=== PATIENT | male | born 1950 | race Two or more races ===

== ENCOUNTER 2017-06-03 22:31 | Inpatient (IN) | payer BC ==
[2017-06-03] MEDS ORDERED: ONDANSETRON 4 MG INJ IV (23:30)
[2017-06-03] MEDS ORDERED: NACL 0.9% 3 ML SYG IV (23:30)
[2017-06-03] MEDS ORDERED: BISACODYL (EC) 5 MG TAB PO (23:30)
[2017-06-03] MEDS ORDERED: GLUCOSE GEL 15 GRAM TUBE BUCCAL (23:45)
[2017-06-03] MEDS ORDERED: GLUCAGON 1 MG INJ IM (23:45)
[2017-06-03] MEDS ORDERED: GLUCOSE GEL 15 GRAM TUBE PO ×2 (23:45)
[2017-06-03] MEDS ORDERED: DEXTROSE 50% 50 ML SYRINGE IV ×2 (23:45)
[2017-06-03] MEDS: CEFTRIAXONE 1 GM/50 ML (PMX) 50 ML IVPB (23:51)
[2017-06-04 00:05] LABS: ADD MAN DIFF? NO
[2017-06-04 00:07] LABS: WHITE BLOOD COUNT 12.1 10^3/ul (4.8-10.8)
[2017-06-04 00:07] LABS: BASOPHILS % 0.3 % (0.0-2.0); EOSINOPHILS # 0.1 10^3/ul (0.0-0.5); EOSINOPHILS % 0.4 % (0.0-7.0); HEMATOCRIT 30.3 % (42.0-52.0); HEMOGLOBIN 9.8 g/dl (14.0-18.0); LYMPHOCYTES # 1.8 10^3/ul (0.8-2.9); LYMPHOCYTES % 14.5 % (15.0-51.0); MEAN CORPUSCULAR HEMOGLOBIN 28.9 pg (29.0-33.0); MEAN CORPUSCULAR HGB CONC 32.3 g/dl (32.0-37.0); MEAN CORPUSCULAR VOLUME 89.4 fl (82.0-101.0); MEAN PLATELET VOLUME 9.6 fl (7.4-10.4); MONOCYTE # 0.7 10^3/ul (0.3-0.9); NEUTROPHIL # 9.3 10^3/ul (1.6-7.5); PLATELET COUNT 272 10^3/UL (140-415); RED BLOOD COUNT 3.39 10^6/ul (4.70-6.10); RED CELL DISTRIBUTION WIDTH 12.8 % (11.5-14.5)
[2017-06-04 00:17] LABS: HEMOGLOBIN A1C 6.6 % (0-5.9)
[2017-06-04 00:29] LABS: LACTIC ACID 1.2 mmol/L (0.5-2.0)
[2017-06-04 00:29] LABS: ALANINE AMINOTRANSFERASE 44 IU/L (13-69); ALBUMIN 3.3 g/dl (3.3-4.9); ALBUMIN/GLOBULIN RATIO 0.91; ALKALINE PHOSPHATASE 178 IU/L (42-121); ANION GAP 14 (8-16); ASPARTATE AMINO TRANSFERASE 37 IU/L (15-46); BILIRUBIN,INDIRECT 0.3 mg/dl (0-1.1); BILIRUBIN,TOTAL 0.3 mg/dl (0.2-1.3); BLOOD UREA NITROGEN 15 mg/dl (7-20); CALCIUM 9.1 mg/dl (8.4-10.2); CARBON DIOXIDE 27 mmol/L (21-31); CHLORIDE 102 mmol/L (97-110); CHOL/HDL RATIO 6.7 RATIO; CHOLESTEROL 95 mg/dl (100-200); CREATININE 1.06 mg/dl (0.61-1.24); GLUCOSE 121 mg/dl (70-220); HDL CHOLESTEROL 14 mg/dl (31-75); LDL CHOLESTEROL,CALCULATED 53 mg/dl; MAGNESIUM 2.1 mg/dl (1.7-2.5); POTASSIUM 4.1 mmol/L (3.5-5.1); SODIUM 139 mmol/L (135-144); TOTAL PROTEIN 6.9 g/dl (6.1-8.1); TRIGLYCERIDES 141 mg/dl (0-149)
[2017-06-04] MEDS: ACCU-CHEK XX (02:00)
[2017-06-04] MEDS: PANTOPRAZOLE (EC) 40 MG TAB PO (05:43)
[2017-06-04 07:21] LABS: ADD UMIC YES; UR ASCORBIC ACID NEGATIVE (NEGATIVE); UR BILIRUBIN (Dip) NEGATIVE (NEGATIVE); UR BLOOD (Dip) 3+ mg/dL (NEGATIVE); UR CLARITY CLEAR (CLEAR); UR COLOR YELLOW (YELLOW); UR GLUCOSE (Dip) NEGATIVE (NEGATIVE); UR KETONES (Dip) TRACE mg/dL (NEGATIVE); UR LEUKOCYTE ESTERASE (Dip) NEGATIVE Leu/ul (NEGATIVE); UR NITRITE (Dip) NEGATIVE (NEGATIVE); UR RBC > 182 /HPF (0-5); UR SPECIFIC GRAVITY (Dip) 1.011 (1.003-1.030); UR TOTAL PROTEIN (Dip) NEGATIVE (NEGATIVE); UR UROBILINOGEN (Dip) 2+ mg/dL (NEGATIVE); UR WBC 10 /HPF (0-5)
[2017-06-04 07:41] LABS: ADD MAN DIFF? NO
[2017-06-04 07:50] LABS: BASOPHIL # 0.1 10^3/ul (0.0-0.1); BASOPHILS % 0.6 % (0.0-2.0); EOSINOPHILS % 0.3 % (0.0-7.0); HEMATOCRIT 30.6 % (42.0-52.0); HEMOGLOBIN 10.1 g/dl (14.0-18.0); LYMPHOCYTES # 1.9 10^3/ul (0.8-2.9); LYMPHOCYTES % 16.3 % (15.0-51.0); MEAN CORPUSCULAR HEMOGLOBIN 29.2 pg (29.0-33.0); MEAN CORPUSCULAR VOLUME 88.4 fl (82.0-101.0); MONOCYTE # 0.7 10^3/ul (0.3-0.9); MONOCYTES % 6.2 % (0.0-11.0); NEUTROPHIL # 8.8 10^3/ul (1.6-7.5); NEUTROPHILS % 75.1 % (39.0-77.0); PLATELET COUNT 268 10^3/UL (140-415); RED BLOOD COUNT 3.46 10^6/ul (4.70-6.10)
[2017-06-04 07:50] LABS: WHITE BLOOD COUNT 11.7 10^3/ul (4.8-10.8)
[2017-06-04] MEDS: INSULIN ASPART [NOVOLOG] 3 ML PEN SC ×4 (08:00→21:00)
[2017-06-04 08:18] LABS: IRON 22 ug/dl (35-150)
[2017-06-04 08:21] LABS: ALANINE AMINOTRANSFERASE 44 IU/L (13-69); ALBUMIN 3.3 g/dl (3.3-4.9); ALBUMIN/GLOBULIN RATIO 0.91; ALKALINE PHOSPHATASE 185 IU/L (42-121); ANION GAP 19 (8-16); ASPARTATE AMINO TRANSFERASE 34 IU/L (15-46); BILIRUBIN,INDIRECT 0.3 mg/dl (0-1.1); BILIRUBIN,TOTAL 0.3 mg/dl (0.2-1.3); BLOOD UREA NITROGEN 15 mg/dl (7-20); CALCIUM 9.3 mg/dl (8.4-10.2); CARBON DIOXIDE 24 mmol/L (21-31); CHLORIDE 102 mmol/L (97-110); CREATININE 0.98 mg/dl (0.61-1.24); GLUCOSE 114 mg/dl (70-220); POTASSIUM 4.1 mmol/L (3.5-5.1); SODIUM 141 mmol/L (135-144); TOTAL PROTEIN 6.9 g/dl (6.1-8.1)
[2017-06-04 08:29] LABS: % IRON SATURATION 11 % SAT (22-52); TOTAL IRON BINDING CAPACITY 193 ug/dl (241-421)
[2017-06-04] MEDS: CLOPIDOGREL 75 MG TAB PO (09:31)
[2017-06-04] MEDS: MEROPENEM 1 GM/50ML(PMX) 50 ML IVPB ×2 (09:31→21:05)
[2017-06-04] MEDS: METOPROLOL (XL) 50 MG TAB PO (09:31)
[2017-06-04 10:24] LABS: GAMMA GLUTAMYL TRANSPEPTIDASE 154 IU/L (0-50)
[2017-06-04 10:57] LABS: CANCER ANTIGEN 125 10.6 U/ml (0.0-35.0); CARCINOEMBRYONIC ANTIGEN 1.9 ng/ml (0.0-5.0)
[2017-06-04 11:00] LABS: CANCER ANTIGEN 19-9 4.7 U/ml (0.0-37.0)
[2017-06-04 13:42] LABS: CARCINOEMBRYONIC ANTIGEN 1.9 ng/ml (0.0-5.0)
[2017-06-04 13:50] LABS: ALPHA FETOPROTEIN 1.08 IU/L (0.00-7.21)
[2017-06-04] MEDS: ATORVASTATIN 10 MG TAB PO (21:05)
[2017-06-05] MEDS: ACCU-CHEK XX (01:53)
[2017-06-05] MEDS: PANTOPRAZOLE (EC) 40 MG TAB PO (05:29)
[2017-06-05 07:16] LABS: ADD MAN DIFF? NO
[2017-06-05 07:19] LABS: WHITE BLOOD COUNT 9.8 10^3/ul (4.8-10.8)
[2017-06-05 07:19] LABS: BASOPHIL # 0.1 10^3/ul (0.0-0.1); BASOPHILS % 0.7 % (0.0-2.0); EOSINOPHILS # 0.1 10^3/ul (0.0-0.5); HEMATOCRIT 31.2 % (42.0-52.0); HEMOGLOBIN 10.1 g/dl (14.0-18.0); LYMPHOCYTES # 1.7 10^3/ul (0.8-2.9); LYMPHOCYTES % 17.4 % (15.0-51.0); MEAN CORPUSCULAR HEMOGLOBIN 28.9 pg (29.0-33.0); MEAN CORPUSCULAR HGB CONC 32.4 g/dl (32.0-37.0); MEAN CORPUSCULAR VOLUME 89.4 fl (82.0-101.0); MEAN PLATELET VOLUME 10.1 fl (7.4-10.4); MONOCYTE # 0.7 10^3/ul (0.3-0.9); MONOCYTES % 7.4 % (0.0-11.0); NEUTROPHILS % 71.3 % (39.0-77.0); PLATELET COUNT 286 10^3/UL (140-415); RED BLOOD COUNT 3.49 10^6/ul (4.70-6.10); RED CELL DISTRIBUTION WIDTH 12.9 % (11.5-14.5)
[2017-06-05 07:44] LABS: ALANINE AMINOTRANSFERASE 58 IU/L (13-69); ALBUMIN 3.2 g/dl (3.3-4.9); ALKALINE PHOSPHATASE 183 IU/L (42-121); ANION GAP 16 (8-16); ASPARTATE AMINO TRANSFERASE 56 IU/L (15-46); BILIRUBIN,INDIRECT 0.2 mg/dl (0-1.1); BILIRUBIN,TOTAL 0.2 mg/dl (0.2-1.3); BLOOD UREA NITROGEN 19 mg/dl (7-20); CARBON DIOXIDE 27 mmol/L (21-31); CHLORIDE 103 mmol/L (97-110); GLUCOSE 111 mg/dl (70-220); POTASSIUM 4.1 mmol/L (3.5-5.1); SODIUM 142 mmol/L (135-144); TOTAL PROTEIN 6.4 g/dl (6.1-8.1)
[2017-06-05] MEDS: INSULIN ASPART [NOVOLOG] 3 ML PEN SC ×4 (08:00→21:00)
[2017-06-05] MEDS: METOPROLOL (XL) 50 MG TAB PO (08:46)
[2017-06-05] MEDS: MEROPENEM 1 GM/50ML(PMX) 50 ML IVPB (09:00)
[2017-06-05] MEDS: CEFTRIAXONE 1 GM/50 ML (PMX) 50 ML IVPB (12:39)
[2017-06-05 13:02] LABS: PROTIME 14.4 Sec (11.9-14.9); PT RATIO 1.1
[2017-06-05 13:03] LABS: PARTIAL THROMBOPLASTIN TIME 37.2 Sec (25.0-35.0)
[2017-06-05 18:12] LABS: PSA, FREE 0.1 ng/mL
[2017-06-05] MEDS: ATORVASTATIN 10 MG TAB PO (21:08)
[2017-06-06] MEDS: ACCU-CHEK XX (02:00)
[2017-06-06] MEDS: PANTOPRAZOLE (EC) 40 MG TAB PO (05:41)
[2017-06-06 06:06] LABS: ADD MAN DIFF? NO
[2017-06-06 06:08] LABS: WHITE BLOOD COUNT 9.6 10^3/ul (4.8-10.8)
[2017-06-06 06:08] LABS: BASOPHILS % 0.7 % (0.0-2.0); EOSINOPHILS % 0.9 % (0.0-7.0); HEMOGLOBIN 9.8 g/dl (14.0-18.0); LYMPHOCYTES % 18.6 % (15.0-51.0); MEAN CORPUSCULAR HEMOGLOBIN 28.8 pg (29.0-33.0); MEAN CORPUSCULAR HGB CONC 32.7 g/dl (32.0-37.0); MEAN CORPUSCULAR VOLUME 88.2 fl (82.0-101.0); MEAN PLATELET VOLUME 10.1 fl (7.4-10.4); MONOCYTES % 6.1 % (0.0-11.0); NEUTROPHILS % 71.5 % (39.0-77.0); PLATELET COUNT 307 10^3/UL (140-415); RED CELL DISTRIBUTION WIDTH 12.9 % (11.5-14.5)
[2017-06-06 06:09] LABS: BASOPHIL # 0.1 10^3/ul (0.0-0.1); EOSINOPHILS # 0.1 10^3/ul (0.0-0.5); LYMPHOCYTES # 1.8 10^3/ul (0.8-2.9); MONOCYTE # 0.6 10^3/ul (0.3-0.9); NEUTROPHIL # 6.9 10^3/ul (1.6-7.5)
[2017-06-06 06:32] LABS: ALANINE AMINOTRANSFERASE 85 IU/L (13-69); ALBUMIN 3.2 g/dl (3.3-4.9); ALBUMIN/GLOBULIN RATIO 0.94; ALKALINE PHOSPHATASE 206 IU/L (42-121); ANION GAP 16 (8-16); ASPARTATE AMINO TRANSFERASE 80 IU/L (15-46); BILIRUBIN,INDIRECT 0.2 mg/dl (0-1.1); BILIRUBIN,TOTAL 0.2 mg/dl (0.2-1.3); BLOOD UREA NITROGEN 25 mg/dl (7-20); CALCIUM 9.1 mg/dl (8.4-10.2); CARBON DIOXIDE 26 mmol/L (21-31); CHLORIDE 103 mmol/L (97-110); CREATININE 1.21 mg/dl (0.61-1.24); GLUCOSE 112 mg/dl (70-220); POTASSIUM 4.7 mmol/L (3.5-5.1); SODIUM 140 mmol/L (135-144); TOTAL PROTEIN 6.6 g/dl (6.1-8.1)
[2017-06-06] MEDS: INSULIN ASPART [NOVOLOG] 3 ML PEN SC ×4 (08:00→20:36)
[2017-06-06] MEDS: METOPROLOL (XL) 50 MG TAB PO (09:42)
[2017-06-06] MEDS: INFLUENZA VIRUS VACCINE 0.5 ML (DISPENSING) IM* (09:42)
[2017-06-06] MEDS: CEFTRIAXONE 1 GM/50 ML (PMX) 50 ML IVPB (11:54)
[2017-06-06] MEDS: FOSFOMYCIN 3 GM PACKET PO (14:35)
[2017-06-06] MEDS: ATORVASTATIN 10 MG TAB PO (20:37)
[2017-06-07] MEDS: ACCU-CHEK XX (01:16)
[2017-06-07] MEDS: PANTOPRAZOLE (EC) 40 MG TAB PO (05:16)
[2017-06-07 06:12] LABS: ADD MAN DIFF? NO
[2017-06-07 06:18] LABS: BASOPHIL # 0.1 10^3/ul (0.0-0.1); BASOPHILS % 0.9 % (0.0-2.0); EOSINOPHILS # 0.1 10^3/ul (0.0-0.5); EOSINOPHILS % 0.6 % (0.0-7.0); HEMATOCRIT 30.8 % (42.0-52.0); HEMOGLOBIN 10.1 g/dl (14.0-18.0); LYMPHOCYTES % 17.3 % (15.0-51.0); MEAN CORPUSCULAR HEMOGLOBIN 29.4 pg (29.0-33.0); MEAN CORPUSCULAR HGB CONC 32.8 g/dl (32.0-37.0); MEAN CORPUSCULAR VOLUME 89.5 fl (82.0-101.0); MEAN PLATELET VOLUME 9.9 fl (7.4-10.4); MONOCYTE # 0.9 10^3/ul (0.3-0.9); MONOCYTES % 7.5 % (0.0-11.0); NEUTROPHIL # 8.1 10^3/ul (1.6-7.5); NEUTROPHILS % 71.4 % (39.0-77.0); NUCLEATED RED BLOOD CELLS # 0.1 10^3/ul (0.0-0.0); NUCLEATED RED BLOOD CELLS% 0.6 /100WBC (0.0-0.0); PLATELET COUNT 318 10^3/UL (140-415); RED BLOOD COUNT 3.44 10^6/ul (4.70-6.10)
[2017-06-07 06:18] LABS: WHITE BLOOD COUNT 11.4 10^3/ul (4.8-10.8)
[2017-06-07 07:13] LABS: ALANINE AMINOTRANSFERASE 79 IU/L (13-69); ALBUMIN 3.3 g/dl (3.3-4.9); ALBUMIN/GLOBULIN RATIO 0.97; ALKALINE PHOSPHATASE 228 IU/L (42-121); ANION GAP 16 (8-16); ASPARTATE AMINO TRANSFERASE 63 IU/L (15-46); BILIRUBIN,INDIRECT 0.3 mg/dl (0-1.1); BILIRUBIN,TOTAL 0.3 mg/dl (0.2-1.3); BLOOD UREA NITROGEN 22 mg/dl (7-20); CARBON DIOXIDE 27 mmol/L (21-31); CHLORIDE 102 mmol/L (97-110); GLUCOSE 116 mg/dl (70-220); POTASSIUM 4.9 mmol/L (3.5-5.1); SODIUM 140 mmol/L (135-144); TOTAL PROTEIN 6.7 g/dl (6.1-8.1)
[2017-06-07] MEDS: INSULIN ASPART [NOVOLOG] 3 ML PEN SC ×4 (08:00→20:35)
[2017-06-07] MEDS: METOPROLOL (XL) 50 MG TAB PO (08:11)
[2017-06-07] MEDS: SOD FERRIC GLUC COMPLX 125 MG in SOD CHLORIDE 0.9% 100 ML IVPB (12:00)
[2017-06-07] MEDS: CEFTRIAXONE 1 GM/50 ML (PMX) 50 ML IVPB (12:59)
[2017-06-07] MEDS: ATORVASTATIN 10 MG TAB PO (20:34)
[2017-06-08] MEDS: ACCU-CHEK XX (02:09)
[2017-06-08] MEDS: PANTOPRAZOLE (EC) 40 MG TAB PO (05:29)
[2017-06-08 05:56] LABS: ADD MAN DIFF? NO
[2017-06-08 06:08] LABS: WHITE BLOOD COUNT 12.3 10^3/ul (4.8-10.8)
[2017-06-08 06:08] LABS: BASOPHIL # 0.1 10^3/ul (0.0-0.1); BASOPHILS % 0.6 % (0.0-2.0); EOSINOPHILS # 0.1 10^3/ul (0.0-0.5); EOSINOPHILS % 0.6 % (0.0-7.0); HEMOGLOBIN 10.2 g/dl (14.0-18.0); LYMPHOCYTES # 1.8 10^3/ul (0.8-2.9); LYMPHOCYTES % 14.9 % (15.0-51.0); MEAN CORPUSCULAR HEMOGLOBIN 28.8 pg (29.0-33.0); MEAN CORPUSCULAR HGB CONC 32.9 g/dl (32.0-37.0); MEAN CORPUSCULAR VOLUME 87.6 fl (82.0-101.0); MEAN PLATELET VOLUME 9.9 fl (7.4-10.4); MONOCYTE # 0.9 10^3/ul (0.3-0.9); MONOCYTES % 7.1 % (0.0-11.0); NEUTROPHIL # 9.2 10^3/ul (1.6-7.5); NEUTROPHILS % 74.4 % (39.0-77.0); PLATELET COUNT 334 10^3/UL (140-415); RED BLOOD COUNT 3.54 10^6/ul (4.70-6.10); RED CELL DISTRIBUTION WIDTH 12.8 % (11.5-14.5)
[2017-06-08 06:37] LABS: ALANINE AMINOTRANSFERASE 61 IU/L (13-69); ALBUMIN 2.9 g/dl (3.3-4.9); ALKALINE PHOSPHATASE 210 IU/L (42-121); ANION GAP 17 (8-16); ASPARTATE AMINO TRANSFERASE 38 IU/L (15-46); BILIRUBIN,INDIRECT 0.3 mg/dl (0-1.1); BILIRUBIN,TOTAL 0.3 mg/dl (0.2-1.3); BLOOD UREA NITROGEN 23 mg/dl (7-20); CARBON DIOXIDE 22 mmol/L (21-31); CHLORIDE 104 mmol/L (97-110); CREATININE 1.04 mg/dl (0.61-1.24); GLUCOSE 114 mg/dl (70-220); POTASSIUM 4.4 mmol/L (3.5-5.1); SODIUM 139 mmol/L (135-144); TOTAL PROTEIN 6.1 g/dl (6.1-8.1)
[2017-06-08] MEDS: INSULIN ASPART [NOVOLOG] 3 ML PEN SC ×4 (08:00→21:00)
[2017-06-08] MEDS: METOPROLOL (XL) 50 MG TAB PO (08:53)
[2017-06-08] MEDS: DOCUSATE SODIUM 100 MG CAP PO (08:56)
[2017-06-08 11:04] LABS: PARTIAL THROMBOPLASTIN TIME 40.1 Sec (25.0-35.0)
[2017-06-08] MEDS: CEFTRIAXONE 1 GM/50 ML (PMX) 50 ML IVPB (12:08)
[2017-06-08] MEDS: ATORVASTATIN 10 MG TAB PO (20:18)
[2017-06-08] MEDS: ZOLEDRONIC ACID 4 MG in SOD CHLORIDE 0.9% 100 ML IVPB (22:44)
[2017-06-09] MEDS: ACCU-CHEK XX (02:00)
[2017-06-09] MEDS: PANTOPRAZOLE (EC) 40 MG TAB PO (05:41)
[2017-06-09 05:56] LABS: ADD MAN DIFF? NO
[2017-06-09 06:08] LABS: WHITE BLOOD COUNT 12.1 10^3/ul (4.8-10.8)
[2017-06-09 06:08] LABS: BASOPHIL # 0.1 10^3/ul (0.0-0.1); BASOPHILS % 0.7 % (0.0-2.0); EOSINOPHILS # 0.1 10^3/ul (0.0-0.5); HEMATOCRIT 30.7 % (42.0-52.0); HEMOGLOBIN 10.1 g/dl (14.0-18.0); LYMPHOCYTES # 2.1 10^3/ul (0.8-2.9); LYMPHOCYTES % 17.2 % (15.0-51.0); MEAN CORPUSCULAR HEMOGLOBIN 28.8 pg (29.0-33.0); MEAN CORPUSCULAR HGB CONC 32.9 g/dl (32.0-37.0); MEAN CORPUSCULAR VOLUME 87.5 fl (82.0-101.0); MONOCYTE # 0.8 10^3/ul (0.3-0.9); MONOCYTES % 6.7 % (0.0-11.0); NEUTROPHIL # 8.6 10^3/ul (1.6-7.5); NEUTROPHILS % 71.2 % (39.0-77.0); PLATELET COUNT 353 10^3/UL (140-415); RED BLOOD COUNT 3.51 10^6/ul (4.70-6.10); RED CELL DISTRIBUTION WIDTH 13.2 % (11.5-14.5)
[2017-06-09 06:49] LABS: ANION GAP 16 (8-16); BLOOD UREA NITROGEN 26 mg/dl (7-20); CARBON DIOXIDE 23 mmol/L (21-31); CHLORIDE 105 mmol/L (97-110); CREATININE 1.08 mg/dl (0.61-1.24); GLUCOSE 125 mg/dl (70-220); POTASSIUM 4.5 mmol/L (3.5-5.1); SODIUM 139 mmol/L (135-144)
[2017-06-09] MEDS: INSULIN ASPART [NOVOLOG] 3 ML PEN SC ×4 (08:00→21:00)
[2017-06-09] MEDS: METOPROLOL (XL) 50 MG TAB PO (08:18)
[2017-06-09] MEDS: ACETAMINOPHEN 325 MG TAB PO ×2 (09:52→21:51)
[2017-06-09] MEDS: CEFTRIAXONE 1 GM/50 ML (PMX) 50 ML IVPB (13:17)
[2017-06-09] MEDS: ATORVASTATIN 10 MG TAB PO (21:00)
[2017-06-10] MEDS: ACCU-CHEK XX (02:00)
[2017-06-10] MEDS: PANTOPRAZOLE (EC) 40 MG TAB PO (05:05)
[2017-06-10] MEDS ORDERED: LIDOCAINE 2% (SDV) 5 ML INJ (07:00)
[2017-06-10] MEDS: ACETAMINOPHEN 325 MG TAB PO ×2 (07:51→21:26)
[2017-06-10] MEDS: INSULIN ASPART [NOVOLOG] 3 ML PEN SC ×4 (07:54→21:28)
[2017-06-10] MEDS: METOPROLOL (XL) 50 MG TAB PO (09:00)
[2017-06-10] MEDS: SOD CHLORIDE 0.45% 1,000 ML IV (10:23)
[2017-06-10] MEDS ORDERED: ETOMIDATE 20 MG INJ (11:50)
[2017-06-10] MEDS ORDERED: ROCURONIUM 50 MG INJ (11:53)
[2017-06-10] MEDS ORDERED: FENTAnyl 50 MCG/ML VIAL (11:53)
[2017-06-10] MEDS: CEFTRIAXONE 1 GM/50 ML (PMX) 50 ML IVPB (12:30)
[2017-06-10] MEDS ORDERED: SUGAMMADEX SODIUM 200 MG/2 ML VIAL IV (12:50)
[2017-06-10] MEDS ORDERED: LABETALOL HCL 20MG INJ (13:15)
[2017-06-10] MEDS ORDERED: MEPERIDINE 25 MG INJ IV (13:30)
[2017-06-10] MEDS ORDERED: OXYCODONE/ACETAMINOPHEN (5/325) TAB PO ×2 (13:30)
[2017-06-10] MEDS ORDERED: FENTAnyl 50 MCG/ML VIAL IV ×3 (13:30)
[2017-06-10] MEDS ORDERED: EPHEDrine SULFATE 50 MG/5 ML SYG IV (13:30)
[2017-06-10] MEDS ORDERED: METOCLOPRAMIDE 10 MG INJ IV (13:30)
[2017-06-10] MEDS ORDERED: ONDANSETRON 4 MG INJ IV (13:30)
[2017-06-10] MEDS ORDERED: HYDROmorphONE (0.2 MG/ML) 10ML SYG IV ×2 (13:30)
[2017-06-10] MEDS ORDERED: DIPHENHYDRAMINE 50 MG INJ IV (13:30)
[2017-06-10] MEDS ORDERED: hydrALAzine 20 MG INJ IV (13:30)
[2017-06-10] MEDS ORDERED: KETOROLAC 30 MG INJ IV (13:30)
[2017-06-10] MEDS ORDERED: HYDROCODONE/APAP (5/325) TAB PO (13:30)
[2017-06-10] MEDS: HYDROmorphONE (0.2 MG/ML) 10ML SYG IV (13:37)
[2017-06-10] MEDS: LABETALOL HCL 20MG INJ IV (13:38)
[2017-06-10] MEDS: DEXTROSE 5%-0.45% NACL 1,000 ML IV (16:30)
[2017-06-10] MEDS: FINASTERIDE 5 MG TAB PO (17:36)
[2017-06-10] MEDS: ATORVASTATIN 10 MG TAB PO (21:26)
[2017-06-10] MEDS: DOCUSATE SODIUM 100 MG CAP PO (21:26)
[2017-06-11] MEDS: ACCU-CHEK XX (02:23)
[2017-06-11] MEDS: PANTOPRAZOLE (EC) 40 MG TAB PO (05:52)
[2017-06-11 05:58] LABS: ADD MAN DIFF? NO
[2017-06-11 06:23] LABS: INR 1.14; PROTIME 14.8 Sec (11.9-14.9); PT RATIO 1.2
[2017-06-11 06:41] LABS: ANION GAP 19 (8-16); BLOOD UREA NITROGEN 22 mg/dl (7-20); CARBON DIOXIDE 20 mmol/L (21-31); CHLORIDE 105 mmol/L (97-110); CREATININE 0.95 mg/dl (0.61-1.24); GLUCOSE 136 mg/dl (70-220); POTASSIUM 5.4 mmol/L (3.5-5.1); SODIUM 139 mmol/L (135-144)
[2017-06-11 08:16] LABS: PHOSPHORUS 2.7 mg/dl (2.5-4.9)
[2017-06-11 08:16] LABS: MAGNESIUM 2.6 mg/dl (1.7-2.5)
[2017-06-11] MEDS: ACETAMINOPHEN 325 MG TAB PO ×2 (08:21→20:38)
[2017-06-11] MEDS: DOCUSATE SODIUM 100 MG CAP PO ×2 (08:22→20:38)
[2017-06-11] MEDS: METOPROLOL (XL) 50 MG TAB PO (08:22)
[2017-06-11] MEDS: INSULIN ASPART [NOVOLOG] 3 ML PEN SC ×4 (08:29→20:38)
[2017-06-11] MEDS: DEXTROSE 5%-0.45% NACL 1,000 ML IV (10:21)
[2017-06-11 12:22] LABS: BASOPHIL # 0.1 10^3/ul (0.0-0.1); BASOPHILS % 0.4 % (0.0-2.0); EOSINOPHILS # 0.1 10^3/ul (0.0-0.5); EOSINOPHILS % 0.5 % (0.0-7.0); HEMATOCRIT 28.3 % (42.0-52.0); HEMOGLOBIN 9.2 g/dl (14.0-18.0); LYMPHOCYTES # 0.9 10^3/ul (0.8-2.9); LYMPHOCYTES % 7.8 % (15.0-51.0); MEAN CORPUSCULAR HEMOGLOBIN 28.7 pg (29.0-33.0); MEAN CORPUSCULAR HGB CONC 32.5 g/dl (32.0-37.0); MEAN CORPUSCULAR VOLUME 88.2 fl (82.0-101.0); MEAN PLATELET VOLUME 9.7 fl (7.4-10.4); MONOCYTE # 0.7 10^3/ul (0.3-0.9); MONOCYTES % 5.7 % (0.0-11.0); NEUTROPHIL # 9.6 10^3/ul (1.6-7.5); NEUTROPHILS % 83.8 % (39.0-77.0); PLATELET COUNT 307 10^3/UL (140-415); RED BLOOD COUNT 3.21 10^6/ul (4.70-6.10); RED CELL DISTRIBUTION WIDTH 13.4 % (11.5-14.5)
[2017-06-11 12:22] LABS: WHITE BLOOD COUNT 11.5 10^3/ul (4.8-10.8)
[2017-06-11] MEDS: CEFTRIAXONE 1 GM/50 ML (PMX) 50 ML IVPB (12:30)
[2017-06-11 12:34] LABS: PARTIAL THROMBOPLASTIN TIME 38.7 Sec (25.0-35.0)
[2017-06-11] MEDS: FUROSEMIDE 20 MG INJ IV (17:43)
[2017-06-11] MEDS: ATORVASTATIN 10 MG TAB PO (20:38)
[2017-06-12] MEDS: INSULIN ASPART [NOVOLOG] 3 ML PEN SC ×6 (01:24→21:20)
[2017-06-12] MEDS ORDERED: INSULIN ASPART [NOVOLOG] 3 ML PEN SC (05:00)
[2017-06-12] MEDS: PANTOPRAZOLE (EC) 40 MG TAB PO (05:26)
[2017-06-12 05:45] LABS: ADD MAN DIFF? NO
[2017-06-12 05:50] LABS: BASOPHIL # 0.1 10^3/ul (0.0-0.1); BASOPHILS % 0.4 % (0.0-2.0); EOSINOPHILS # 0.1 10^3/ul (0.0-0.5); EOSINOPHILS % 1.2 % (0.0-7.0); HEMATOCRIT 31.7 % (42.0-52.0); HEMOGLOBIN 10.4 g/dl (14.0-18.0); LYMPHOCYTES # 1.5 10^3/ul (0.8-2.9); MEAN CORPUSCULAR HEMOGLOBIN 28.9 pg (29.0-33.0); MEAN CORPUSCULAR HGB CONC 32.8 g/dl (32.0-37.0); MEAN CORPUSCULAR VOLUME 88.1 fl (82.0-101.0); MEAN PLATELET VOLUME 9.6 fl (7.4-10.4); MONOCYTE # 0.6 10^3/ul (0.3-0.9); MONOCYTES % 5.3 % (0.0-11.0); NEUTROPHIL # 8.7 10^3/ul (1.6-7.5); NEUTROPHILS % 77.7 % (39.0-77.0); PLATELET COUNT 349 10^3/UL (140-415); RED CELL DISTRIBUTION WIDTH 13.1 % (11.5-14.5)
[2017-06-12 05:50] LABS: WHITE BLOOD COUNT 11.2 10^3/ul (4.8-10.8)
[2017-06-12] MEDS: DEXTROSE 5%-0.45% NACL 1,000 ML IV (05:51)
[2017-06-12 06:27] LABS: ANION GAP 15 (8-16); BLOOD UREA NITROGEN 16 mg/dl (7-20); CALCIUM 6.9 mg/dl (8.4-10.2); CARBON DIOXIDE 25 mmol/L (21-31); CHLORIDE 107 mmol/L (97-110); CREATININE 0.94 mg/dl (0.61-1.24); GLUCOSE 142 mg/dl (70-220); MAGNESIUM 2.9 mg/dl (1.7-2.5); POTASSIUM 4.2 mmol/L (3.5-5.1); SODIUM 143 mmol/L (135-144)
[2017-06-12] MEDS: METOPROLOL (XL) 50 MG TAB PO (08:46)
[2017-06-12] MEDS: DOCUSATE SODIUM 100 MG CAP PO ×2 (08:46→21:20)
[2017-06-12] MEDS: CEFTRIAXONE 1 GM/50 ML (PMX) 50 ML IVPB (13:19)
[2017-06-12] MEDS: LIDOCAINE 1% (MDV) 20 ML INJ (13:46)
[2017-06-12] MEDS: PROPOFOL 20 ML (14:04)
[2017-06-12] MEDS: MIDAZOLAM 1 MG/ML 2 ML INJ (14:04)
[2017-06-12] MEDS: FENTAnyl 50 MCG/ML VIAL (14:05)
[2017-06-12] MEDS ORDERED: ONDANSETRON 4 MG INJ IV (15:30)
[2017-06-12] MEDS ORDERED: FENTAnyl 50 MCG/ML VIAL IV (15:30)
[2017-06-12] MEDS: ACETAMINOPHEN 325 MG TAB PO (17:00)
[2017-06-12] MEDS: morphine 2 MG INJ IV (21:19)
[2017-06-12] MEDS: ATORVASTATIN 10 MG TAB PO (21:20)
[2017-06-13] MEDS: DEXTROSE 5%-0.45% NACL 1,000 ML IV ×2 (01:05→05:37)
[2017-06-13] MEDS: PANTOPRAZOLE (EC) 40 MG TAB PO (05:37)
[2017-06-13] MEDS: ACETAMINOPHEN 325 MG TAB PO (06:09)
[2017-06-13 06:24] LABS: ADD MAN DIFF? NO
[2017-06-13 06:26] LABS: BASOPHIL # 0.1 10^3/ul (0.0-0.1); BASOPHILS % 0.4 % (0.0-2.0); EOSINOPHILS # 0.1 10^3/ul (0.0-0.5); EOSINOPHILS % 0.9 % (0.0-7.0); HEMATOCRIT 29.6 % (42.0-52.0); HEMOGLOBIN 9.8 g/dl (14.0-18.0); LYMPHOCYTES # 1.3 10^3/ul (0.8-2.9); LYMPHOCYTES % 11.1 % (15.0-51.0); MEAN CORPUSCULAR HEMOGLOBIN 29.3 pg (29.0-33.0); MEAN CORPUSCULAR HGB CONC 33.1 g/dl (32.0-37.0); MEAN CORPUSCULAR VOLUME 88.6 fl (82.0-101.0); MEAN PLATELET VOLUME 9.7 fl (7.4-10.4); MONOCYTE # 0.6 10^3/ul (0.3-0.9); MONOCYTES % 5.1 % (0.0-11.0); NEUTROPHIL # 9.4 10^3/ul (1.6-7.5); NEUTROPHILS % 80.4 % (39.0-77.0); PLATELET COUNT 335 10^3/UL (140-415); RED BLOOD COUNT 3.34 10^6/ul (4.70-6.10); RED CELL DISTRIBUTION WIDTH 13.2 % (11.5-14.5)
[2017-06-13 06:26] LABS: WHITE BLOOD COUNT 11.6 10^3/ul (4.8-10.8)
[2017-06-13 06:54] LABS: ANION GAP 17 (8-16); BLOOD UREA NITROGEN 15 mg/dl (7-20); CALCIUM 6.8 mg/dl (8.4-10.2); CARBON DIOXIDE 18 mmol/L (21-31); CHLORIDE 108 mmol/L (97-110); CREATININE 0.97 mg/dl (0.61-1.24); GLUCOSE 145 mg/dl (70-220); PHOSPHORUS 1.2 mg/dl (2.5-4.9); POTASSIUM 4.2 mmol/L (3.5-5.1); SODIUM 139 mmol/L (135-144)
[2017-06-13] MEDS: INSULIN ASPART [NOVOLOG] 3 ML PEN SC ×2 (08:15→12:36)
[2017-06-13] MEDS: METOPROLOL (XL) 50 MG TAB PO (08:15)
[2017-06-13] MEDS: DOCUSATE SODIUM 100 MG CAP PO (08:15)
[2017-06-13] MEDS: POTASSIUM PHOSPHATE 20 MEQ in SOD CHLORIDE 0.9% 250 ML IVPB (11:28)
[2017-06-13] MEDS: NEUTRA-PHOS 250 MG PACKET PO (12:39)
== END 2017-06-13 17:23 | disposition home or self-care (01) | DRG 666 ==
LOC: PP2 22:31
PROVIDERS: Family Medicine
PROC: 0VT08ZZ Resection of Prostate, Via Natural or Artificial Opening Endoscopic (ICD-10-PCS; principal; 2017-06-10 11:57)
PROC: 0TBB8ZX Excision of Bladder, Via Natural or Artificial Opening Endoscopic, Diagnostic (ICD-10-PCS; 2017-06-10 11:57)
PROC: 0FB13ZX Excision of Right Lobe Liver, Percutaneous Approach, Diagnostic (ICD-10-PCS; 2017-06-10 11:57)
DX: C67.1 Malignant neoplasm of dome of bladder (principal); C78.7 Secondary malignant neoplasm of liver and intrahepatic bile duct; C79.51 Secondary malignant neoplasm of bone; R65.10 Systemic inflammatory response syndrome (SIRS) of non-infectious origin without acute organ dysfunction; C61 Malignant neoplasm of prostate; I48.91 Unspecified atrial fibrillation; N39.0 Urinary tract infection, site not specified; C67.0 Malignant neoplasm of trigone of bladder; I10 Essential (primary) hypertension; E11.9 Type 2 diabetes mellitus without complications; D50.9 Iron deficiency anemia, unspecified; R59.0 Localized enlarged lymph nodes; K21.9 Gastro-esophageal reflux disease without esophagitis; Z95.5 Presence of coronary angioplasty implant and graft; Z79.02 Long term (current) use of antithrombotics/antiplatelets; R31.0 Gross hematuria; Z87.891 Personal history of nicotine dependence
CPT/HCPCS: 71250; 74176; 76705; 76775; 77012; 80048; 80053; 80061; 81001; 82105; 82378; 82728; 82962; 82977; 83036; 83540; 83605; 83735; 84100; 84153; 84154; 84443; 85025; 85335; 85384; 85610; 85730; 86301; 86304; 87040; 87081; 87086; 88104; 88307; 88309; 88312; 88313; 88341; 88342; 93005; J1940; J3487

== ENCOUNTER 2017-06-20 13:58 | Inpatient (IN) | payer BC ==
[2017-06-20 16:43] LABS: ADD MAN DIFF? NO
[2017-06-20 16:45] LABS: BASOPHIL # 0.1 10^3/ul (0.0-0.1); BASOPHILS % 0.6 % (0.0-2.0); EOSINOPHILS % 0.2 % (0.0-7.0); HEMATOCRIT 32.3 % (42.0-52.0); HEMOGLOBIN 10.4 g/dl (14.0-18.0); LYMPHOCYTES # 1.2 10^3/ul (0.8-2.9); LYMPHOCYTES % 9.7 % (15.0-51.0); MEAN CORPUSCULAR HEMOGLOBIN 28.1 pg (29.0-33.0); MEAN CORPUSCULAR HGB CONC 32.2 g/dl (32.0-37.0); MEAN CORPUSCULAR VOLUME 87.3 fl (82.0-101.0); MEAN PLATELET VOLUME 9.4 fl (7.4-10.4); MONOCYTE # 0.7 10^3/ul (0.3-0.9); MONOCYTES % 5.4 % (0.0-11.0); NEUTROPHIL # 10.1 10^3/ul (1.6-7.5); NEUTROPHILS % 79.3 % (39.0-77.0); PLATELET COUNT 306 10^3/UL (140-415); RED CELL DISTRIBUTION WIDTH 14.2 % (11.5-14.5)
[2017-06-20 16:45] LABS: WHITE BLOOD COUNT 12.7 10^3/ul (4.8-10.8)
[2017-06-20] MEDS: CEFEPIME 2GM/50 ML (PMX) 50 ML IVPB (16:46)
[2017-06-20] MEDS: SODIUM CHLORIDE 0.9% 1L BAG IV* (16:47)
[2017-06-20 17:02] LABS: ALANINE AMINOTRANSFERASE 76 IU/L (13-69); ALBUMIN 3.6 g/dl (3.3-4.9); ALBUMIN/GLOBULIN RATIO 0.87; ALKALINE PHOSPHATASE 340 IU/L (42-121); ANION GAP 17 (8-16); ASPARTATE AMINO TRANSFERASE 61 IU/L (15-46); BILIRUBIN,INDIRECT 0.3 mg/dl (0-1.1); BILIRUBIN,TOTAL 0.3 mg/dl (0.2-1.3); BLOOD UREA NITROGEN 18 mg/dl (7-20); CALCIUM 7.8 mg/dl (8.4-10.2); CARBON DIOXIDE 18 mmol/L (21-31); CHLORIDE 106 mmol/L (97-110); CREATININE 1.26 mg/dl (0.61-1.24); GLUCOSE 194 mg/dl (70-220); POTASSIUM 4.7 mmol/L (3.5-5.1); SODIUM 136 mmol/L (135-144); TOTAL PROTEIN 7.7 g/dl (6.1-8.1)
[2017-06-20 17:13] LABS: TROPONIN-I < 0.012 ng/ml (0.00-0.12)
[2017-06-20 17:16] LABS: LACTIC ACID 3.5 mmol/L (0.5-2.0)
[2017-06-20 17:16] LABS: PROTIME 14.4 Sec (11.9-14.9); PT RATIO 1.1
[2017-06-20 17:17] LABS: PARTIAL THROMBOPLASTIN TIME 34.5 Sec (25.0-35.0)
[2017-06-20] MEDS ORDERED: ONDANSETRON 4 MG INJ IV (18:00)
[2017-06-20] MEDS ORDERED: GLUCOSE GEL 15 GRAM TUBE BUCCAL (19:00)
[2017-06-20] MEDS ORDERED: DEXTROSE 50% 50 ML SYRINGE IV ×2 (19:00)
[2017-06-20] MEDS ORDERED: GLUCOSE GEL 15 GRAM TUBE PO ×2 (19:00)
[2017-06-20] MEDS ORDERED: GLUCAGON 1 MG INJ IM (19:00)
[2017-06-20 19:47] LABS: LACTIC ACID 2.8 mmol/L (0.5-2.0)
[2017-06-20] MEDS: INSULIN ASPART [NOVOLOG] 3 ML PEN SC (21:00)
[2017-06-20] MEDS: INSULIN GLARGINE [LANtus] 3 ML PEN SC (21:02)
[2017-06-20] MEDS: MEROPENEM 1 GM/50ML(PMX) 50 ML IVPB (21:37)
[2017-06-20 23:06] LABS: ADD UMIC YES; UR ASCORBIC ACID NEGATIVE (NEGATIVE); UR BILIRUBIN (Dip) NEGATIVE (NEGATIVE); UR BLOOD (Dip) 3+ mg/dL (NEGATIVE); UR CLARITY CLOUDY (CLEAR); UR COLOR YELLOW (YELLOW); UR GLUCOSE (Dip) NEGATIVE (NEGATIVE); UR KETONES (Dip) NEGATIVE (NEGATIVE); UR LEUKOCYTE ESTERASE (Dip) 2+ Leu/ul (NEGATIVE); UR NITRITE (Dip) NEGATIVE (NEGATIVE); UR RBC > 182 /HPF (0-5); UR SPECIFIC GRAVITY (Dip) 1.013 (1.003-1.030); UR TOTAL PROTEIN (Dip) 1+ mg/dl (NEGATIVE); UR UROBILINOGEN (Dip) NEGATIVE (NEGATIVE); UR WBC 164 /HPF (0-5)
[2017-06-20 23:17] LABS: LACTIC ACID 2.4 mmol/L (0.5-2.0)
[2017-06-21] MEDS: ACCU-CHEK XX (01:58)
[2017-06-21] MEDS: ACETAMINOPHEN 325 MG TAB PO ×2 (02:09→20:31)
[2017-06-21 05:55] LABS: ADD MAN DIFF? NO
[2017-06-21 05:58] LABS: WHITE BLOOD COUNT 11.5 10^3/ul (4.8-10.8)
[2017-06-21 05:58] LABS: BASOPHIL # 0.1 10^3/ul (0.0-0.1); BASOPHILS % 0.5 % (0.0-2.0); EOSINOPHILS # 0.1 10^3/ul (0.0-0.5); EOSINOPHILS % 0.7 % (0.0-7.0); HEMATOCRIT 27.9 % (42.0-52.0); HEMOGLOBIN 9.1 g/dl (14.0-18.0); LYMPHOCYTES # 1.4 10^3/ul (0.8-2.9); LYMPHOCYTES % 11.9 % (15.0-51.0); MEAN CORPUSCULAR HEMOGLOBIN 28.3 pg (29.0-33.0); MEAN CORPUSCULAR HGB CONC 32.6 g/dl (32.0-37.0); MEAN CORPUSCULAR VOLUME 86.6 fl (82.0-101.0); MEAN PLATELET VOLUME 9.6 fl (7.4-10.4); MONOCYTE # 0.7 10^3/ul (0.3-0.9); MONOCYTES % 6.4 % (0.0-11.0); NEUTROPHIL # 8.9 10^3/ul (1.6-7.5); NEUTROPHILS % 77.8 % (39.0-77.0); PLATELET COUNT 249 10^3/UL (140-415); RED BLOOD COUNT 3.22 10^6/ul (4.70-6.10); RED CELL DISTRIBUTION WIDTH 14.3 % (11.5-14.5)
[2017-06-21 06:19] LABS: ALANINE AMINOTRANSFERASE 64 IU/L (13-69); ALBUMIN 3.2 g/dl (3.3-4.9); ALBUMIN/GLOBULIN RATIO 0.91; ALKALINE PHOSPHATASE 297 IU/L (42-121); ANION GAP 17 (8-16); ASPARTATE AMINO TRANSFERASE 62 IU/L (15-46); BILIRUBIN,INDIRECT 0.2 mg/dl (0-1.1); BILIRUBIN,TOTAL 0.2 mg/dl (0.2-1.3); BLOOD UREA NITROGEN 20 mg/dl (7-20); CALCIUM 7.6 mg/dl (8.4-10.2); CARBON DIOXIDE 19 mmol/L (21-31); CHLORIDE 111 mmol/L (97-110); CREATININE 0.94 mg/dl (0.61-1.24); GLUCOSE 122 mg/dl (70-220); POTASSIUM 4.7 mmol/L (3.5-5.1); SODIUM 142 mmol/L (135-144); TOTAL PROTEIN 6.7 g/dl (6.1-8.1)
[2017-06-21] MEDS: INSULIN ASPART [NOVOLOG] 3 ML PEN SC ×7 (08:03→21:00)
[2017-06-21] MEDS: MEROPENEM 1 GM/50ML(PMX) 50 ML IVPB ×2 (09:49→20:26)
[2017-06-21] MEDS: morphine 2 MG INJ IV (20:29)
[2017-06-21] MEDS: INSULIN GLARGINE [LANtus] 3 ML PEN SC (20:38)
[2017-06-22] MEDS: ACCU-CHEK XX (02:00)
[2017-06-22 05:37] LABS: ADD MAN DIFF? NO
[2017-06-22 05:53] LABS: BASOPHIL # 0.1 10^3/ul (0.0-0.1); BASOPHILS % 0.7 % (0.0-2.0); EOSINOPHILS # 0.1 10^3/ul (0.0-0.5); EOSINOPHILS % 0.6 % (0.0-7.0); HEMATOCRIT 32.3 % (42.0-52.0); HEMOGLOBIN 10.4 g/dl (14.0-18.0); LYMPHOCYTES % 17.1 % (15.0-51.0); MEAN CORPUSCULAR HEMOGLOBIN 28.1 pg (29.0-33.0); MEAN CORPUSCULAR HGB CONC 32.2 g/dl (32.0-37.0); MEAN CORPUSCULAR VOLUME 87.3 fl (82.0-101.0); MEAN PLATELET VOLUME 9.7 fl (7.4-10.4); MONOCYTE # 0.6 10^3/ul (0.3-0.9); MONOCYTES % 5.2 % (0.0-11.0); NEUTROPHIL # 8.5 10^3/ul (1.6-7.5); NEUTROPHILS % 72.1 % (39.0-77.0); NUCLEATED RED BLOOD CELLS% 0.2 /100WBC (0.0-0.0); PLATELET COUNT 275 10^3/UL (140-415); RED CELL DISTRIBUTION WIDTH 14.3 % (11.5-14.5)
[2017-06-22 05:53] LABS: WHITE BLOOD COUNT 11.8 10^3/ul (4.8-10.8)
[2017-06-22 06:13] LABS: ANION GAP 18 (8-16); BLOOD UREA NITROGEN 18 mg/dl (7-20); CALCIUM 7.8 mg/dl (8.4-10.2); CARBON DIOXIDE 20 mmol/L (21-31); CHLORIDE 108 mmol/L (97-110); CREATININE 0.92 mg/dl (0.61-1.24); GLUCOSE 118 mg/dl (70-220); POTASSIUM 4.6 mmol/L (3.5-5.1); SODIUM 141 mmol/L (135-144)
[2017-06-22] MEDS: MEROPENEM 1 GM/50ML(PMX) 50 ML IVPB (07:55)
[2017-06-22] MEDS: INSULIN ASPART [NOVOLOG] 3 ML PEN SC ×7 (07:55→20:44)
[2017-06-22] MEDS: ACETAMINOPHEN 325 MG TAB PO (12:05)
[2017-06-22] MEDS: INSULIN GLARGINE [LANtus] 3 ML PEN SC (20:49)
[2017-06-22] MEDS: ATORVASTATIN 10 MG TAB PO (21:25)
[2017-06-22] MEDS: PIPER-TAZO 3.375 GM IV (PMX) 100 ML IVPB (21:25)
[2017-06-22] MEDS: SOD CHLORIDE 0.9% 1,000 ML IV (23:33)
[2017-06-23] MEDS: morphine 2 MG INJ IV
[2017-06-23] MEDS: LORAZEPAM 2 MG INJ IV
[2017-06-23] MEDS: DILTIAZEM 25 MG INJ IV (00:44)
[2017-06-23] MEDS: ACCU-CHEK XX (02:00)
[2017-06-23] MEDS: PANTOPRAZOLE (EC) 40 MG TAB PO (06:03)
[2017-06-23] MEDS: PIPER-TAZO 3.375 GM IV (PMX) 100 ML IVPB ×3 (06:03→21:18)
[2017-06-23] MEDS: AMIODARONE 900 MG in DEXTROSE 5% 482 ML IV (06:47)
[2017-06-23 07:53] LABS: ADD MAN DIFF? NO
[2017-06-23] MEDS: INSULIN ASPART [NOVOLOG] 3 ML PEN SC ×7 (07:55→22:09)
[2017-06-23 07:56] LABS: WHITE BLOOD COUNT 10.2 10^3/ul (4.8-10.8)
[2017-06-23 07:56] LABS: BASOPHIL # 0.1 10^3/ul (0.0-0.1); BASOPHILS % 0.7 % (0.0-2.0); EOSINOPHILS # 0.1 10^3/ul (0.0-0.5); EOSINOPHILS % 0.5 % (0.0-7.0); HEMATOCRIT 31.8 % (42.0-52.0); HEMOGLOBIN 10.2 g/dl (14.0-18.0); LYMPHOCYTES # 1.5 10^3/ul (0.8-2.9); LYMPHOCYTES % 14.7 % (15.0-51.0); MEAN CORPUSCULAR HEMOGLOBIN 27.9 pg (29.0-33.0); MEAN CORPUSCULAR HGB CONC 32.1 g/dl (32.0-37.0); MEAN CORPUSCULAR VOLUME 87.1 fl (82.0-101.0); MEAN PLATELET VOLUME 9.7 fl (7.4-10.4); MONOCYTE # 0.6 10^3/ul (0.3-0.9); MONOCYTES % 5.4 % (0.0-11.0); NEUTROPHIL # 7.6 10^3/ul (1.6-7.5); NEUTROPHILS % 74.4 % (39.0-77.0); PLATELET COUNT 292 10^3/UL (140-415); RED BLOOD COUNT 3.65 10^6/ul (4.70-6.10); RED CELL DISTRIBUTION WIDTH 14.5 % (11.5-14.5)
[2017-06-23 08:20] LABS: LACTIC ACID 2.3 mmol/L (0.5-2.0)
[2017-06-23 08:26] LABS: ANION GAP 18 (8-16); BLOOD UREA NITROGEN 19 mg/dl (7-20); CALCIUM 7.7 mg/dl (8.4-10.2); CARBON DIOXIDE 19 mmol/L (21-31); CHLORIDE 107 mmol/L (97-110); CREATININE 0.97 mg/dl (0.61-1.24); GLUCOSE 98 mg/dl (70-220); MAGNESIUM 2.2 mg/dl (1.7-2.5); POTASSIUM 4.7 mmol/L (3.5-5.1); SODIUM 139 mmol/L (135-144)
[2017-06-23] MEDS: METOPROLOL (XL) 25 MG TAB PO (09:22)
[2017-06-23] MEDS: ATORVASTATIN 10 MG TAB PO (21:17)
[2017-06-23] MEDS: INSULIN GLARGINE [LANtus] 3 ML PEN SC (22:09)
[2017-06-24] MEDS: ACCU-CHEK XX (02:00)
[2017-06-24 05:13] LABS: ADD MAN DIFF? NO
[2017-06-24 05:16] LABS: BASOPHIL # 0.1 10^3/ul (0.0-0.1); BASOPHILS % 0.7 % (0.0-2.0); EOSINOPHILS # 0.1 10^3/ul (0.0-0.5); HEMATOCRIT 31.5 % (42.0-52.0); LYMPHOCYTES # 1.9 10^3/ul (0.8-2.9); LYMPHOCYTES % 18.5 % (15.0-51.0); MEAN CORPUSCULAR HEMOGLOBIN 28.1 pg (29.0-33.0); MEAN CORPUSCULAR HGB CONC 31.7 g/dl (32.0-37.0); MEAN CORPUSCULAR VOLUME 88.5 fl (82.0-101.0); MEAN PLATELET VOLUME 9.7 fl (7.4-10.4); MONOCYTE # 0.6 10^3/ul (0.3-0.9); NEUTROPHILS % 69.4 % (39.0-77.0); NUCLEATED RED BLOOD CELLS% 0.2 /100WBC (0.0-0.0); PLATELET COUNT 250 10^3/UL (140-415); RED BLOOD COUNT 3.56 10^6/ul (4.70-6.10); RED CELL DISTRIBUTION WIDTH 14.6 % (11.5-14.5)
[2017-06-24 05:16] LABS: WHITE BLOOD COUNT 10.1 10^3/ul (4.8-10.8)
[2017-06-24] MEDS: PIPER-TAZO 3.375 GM IV (PMX) 100 ML IVPB ×3 (05:48→21:13)
[2017-06-24] MEDS: PANTOPRAZOLE (EC) 40 MG TAB PO (05:49)
[2017-06-24 05:54] LABS: ANION GAP 18 (8-16); BLOOD UREA NITROGEN 20 mg/dl (7-20); CARBON DIOXIDE 18 mmol/L (21-31); CHLORIDE 108 mmol/L (97-110); CREATININE 0.97 mg/dl (0.61-1.24); GLUCOSE 116 mg/dl (70-220); POTASSIUM 4.6 mmol/L (3.5-5.1); SODIUM 139 mmol/L (135-144)
[2017-06-24] MEDS: INSULIN ASPART [NOVOLOG] 3 ML PEN SC ×7 (07:50→21:00)
[2017-06-24] MEDS: METOPROLOL (XL) 25 MG TAB PO (09:07)
[2017-06-24] MEDS: ATORVASTATIN 10 MG TAB PO (21:04)
[2017-06-24] MEDS: INSULIN GLARGINE [LANtus] 3 ML PEN SC (21:13)
[2017-06-25] MEDS: ACCU-CHEK XX (02:00)
[2017-06-25] MEDS: ACETAMINOPHEN 325 MG TAB PO (02:39)
[2017-06-25] MEDS: PANTOPRAZOLE (EC) 40 MG TAB PO (05:36)
[2017-06-25] MEDS: PIPER-TAZO 3.375 GM IV (PMX) 100 ML IVPB ×3 (05:36→21:40)
[2017-06-25 05:38] LABS: ADD MAN DIFF? NO
[2017-06-25 05:46] LABS: BASOPHIL # 0.1 10^3/ul (0.0-0.1); BASOPHILS % 0.5 % (0.0-2.0); EOSINOPHILS # 0.1 10^3/ul (0.0-0.5); EOSINOPHILS % 0.9 % (0.0-7.0); HEMATOCRIT 29.1 % (42.0-52.0); HEMOGLOBIN 9.3 g/dl (14.0-18.0); LYMPHOCYTES # 1.7 10^3/ul (0.8-2.9); LYMPHOCYTES % 15.4 % (15.0-51.0); MEAN CORPUSCULAR HEMOGLOBIN 27.4 pg (29.0-33.0); MEAN CORPUSCULAR VOLUME 85.8 fl (82.0-101.0); MONOCYTE # 0.7 10^3/ul (0.3-0.9); MONOCYTES % 5.9 % (0.0-11.0); NEUTROPHIL # 8.1 10^3/ul (1.6-7.5); NEUTROPHILS % 72.7 % (39.0-77.0); NUCLEATED RED BLOOD CELLS% 0.2 /100WBC (0.0-0.0); PLATELET COUNT 249 10^3/UL (140-415); RED BLOOD COUNT 3.39 10^6/ul (4.70-6.10); RED CELL DISTRIBUTION WIDTH 14.7 % (11.5-14.5)
[2017-06-25 05:46] LABS: WHITE BLOOD COUNT 11.1 10^3/ul (4.8-10.8)
[2017-06-25 06:07] LABS: ANION GAP 17 (8-16); BLOOD UREA NITROGEN 18 mg/dl (7-20); CALCIUM 8.1 mg/dl (8.4-10.2); CARBON DIOXIDE 18 mmol/L (21-31); CHLORIDE 109 mmol/L (97-110); CREATININE 0.99 mg/dl (0.61-1.24); GLUCOSE 148 mg/dl (70-220); POTASSIUM 4.2 mmol/L (3.5-5.1); SODIUM 140 mmol/L (135-144)
[2017-06-25] MEDS: INSULIN ASPART [NOVOLOG] 3 ML PEN SC ×7 (07:50→21:46)
[2017-06-25] MEDS: METOPROLOL (XL) 25 MG TAB PO (08:52)
[2017-06-25] MEDS ORDERED: SOD CHLORIDE 0.9% 250 ML (13:59)
[2017-06-25] MEDS: MIDAZOLAM 1 MG/ML 2 ML INJ (14:27)
[2017-06-25] MEDS: CEFAZOLIN 1 GM/50 ML (PMX) 100 ML IVPB (14:27)
[2017-06-25] MEDS: LIDOCAINE 1%/EPI 30 ML INJ (14:30)
[2017-06-25] MEDS: LABETALOL HCL 20MG INJ (14:51)
[2017-06-25] MEDS: ESMOLOL 10 ML ×2 (14:52→15:02)
[2017-06-25] MEDS: FENTAnyl 50 MCG/ML VIAL ×2 (15:00→15:10)
[2017-06-25] MEDS: DILTIAZEM 25 MG INJ IV (15:00)
[2017-06-25] MEDS: POLYMYXIN/BACITRACIN 1L IRRIG IRR (15:00)
[2017-06-25] MEDS: PHENYLephrine 10% 5 ML OPH (15:02)
[2017-06-25] MEDS ORDERED: PHENYLephrine (100 MCG/ML) 5ML SYG (15:03)
[2017-06-25] MEDS: HEPARIN 1000 UNITS/ML 10 ML INJ (15:09)
[2017-06-25] MEDS: CEFAZOLIN 1 GM/50 ML (PMX) 0 ML IVPB (15:10)
[2017-06-25] MEDS: PROPOFOL 20 ML (15:10)
[2017-06-25] MEDS: ATORVASTATIN 10 MG TAB PO (21:40)
[2017-06-25] MEDS: INSULIN GLARGINE [LANtus] 3 ML PEN SC (21:45)
[2017-06-26] MEDS: ACCU-CHEK XX (02:00)
[2017-06-26] MEDS: ACETAMINOPHEN 325 MG TAB PO ×2 (04:23→21:43)
[2017-06-26] MEDS: PANTOPRAZOLE (EC) 40 MG TAB PO (06:09)
[2017-06-26] MEDS: PIPER-TAZO 3.375 GM IV (PMX) 100 ML IVPB ×3 (06:09→21:39)
[2017-06-26] MEDS: INSULIN ASPART [NOVOLOG] 3 ML PEN SC ×7 (08:00→21:00)
[2017-06-26] MEDS: METOPROLOL (XL) 25 MG TAB PO (08:52)
[2017-06-26] MEDS: DILTIAZEM 25 MG INJ IV (10:12)
[2017-06-26] MEDS: DILTIAZEM-D5W 125MG/125ML DRIP 125 ML IV (10:24)
[2017-06-26] MEDS: MAGNESIUM SULFATE 2 GM/50 ML 50 ML IVPB (12:02)
[2017-06-26] MEDS: DILTIAZEM 60 MG TAB PO ×2 (14:17→18:09)
[2017-06-26] MEDS: AMIODARONE 200 MG TAB PO (17:19)
[2017-06-26] MEDS ORDERED: METOPROLOL 5 MG INJ IV (19:00)
[2017-06-26] MEDS: ATORVASTATIN 10 MG TAB PO (21:39)
[2017-06-26] MEDS: INSULIN GLARGINE [LANtus] 3 ML PEN SC (22:14)
[2017-06-27] MEDS: DILTIAZEM 60 MG TAB PO ×4 (01:07→18:16)
[2017-06-27] MEDS: ACCU-CHEK XX (01:08)
[2017-06-27] MEDS: AMIODARONE 200 MG TAB PO ×3 (01:08→21:02)
[2017-06-27 01:43] LABS: TROPONIN-I < 0.012 ng/ml (0.00-0.12)
[2017-06-27] MEDS: PIPER-TAZO 3.375 GM IV (PMX) 100 ML IVPB ×3 (05:22→21:35)
[2017-06-27] MEDS: PANTOPRAZOLE (EC) 40 MG TAB PO (05:22)
[2017-06-27 05:38] LABS: ABNORMAL IP MESSAGE 1; ADD MAN DIFF? NO; BASOPHIL # 0.1 10^3/ul (0.0-0.1); BASOPHILS % 0.5 % (0.0-2.0); EOSINOPHILS # 0.1 10^3/ul (0.0-0.5); EOSINOPHILS % 0.9 % (0.0-7.0); HEMATOCRIT 29.9 % (42.0-52.0); HEMOGLOBIN 9.5 g/dl (14.0-18.0); LYMPHOCYTES # 1.6 10^3/ul (0.8-2.9); LYMPHOCYTES % 14.8 % (15.0-51.0); MEAN CORPUSCULAR HEMOGLOBIN 27.9 pg (29.0-33.0); MEAN CORPUSCULAR HGB CONC 31.8 g/dl (32.0-37.0); MEAN CORPUSCULAR VOLUME 87.7 fl (82.0-101.0); MONOCYTE # 0.5 10^3/ul (0.3-0.9); MONOCYTES % 4.7 % (0.0-11.0); NEUTROPHILS % 73.4 % (39.0-77.0); PLATELET COUNT 269 10^3/UL (140-415); POSITIVE DIFF @See below; RED BLOOD COUNT 3.41 10^6/ul (4.70-6.10); RED CELL DISTRIBUTION WIDTH 14.9 % (11.5-14.5)
[2017-06-27 06:16] LABS: ANION GAP 16 (8-16); BLOOD UREA NITROGEN 19 mg/dl (7-20); CALCIUM 8.3 mg/dl (8.4-10.2); CARBON DIOXIDE 22 mmol/L (21-31); CHLORIDE 108 mmol/L (97-110); CREATININE 1.15 mg/dl (0.61-1.24); GLUCOSE 144 mg/dl (70-220); MAGNESIUM 2.6 mg/dl (1.7-2.5); PHOSPHORUS 2.6 mg/dl (2.5-4.9); POTASSIUM 4.9 mmol/L (3.5-5.1); SODIUM 141 mmol/L (135-144)
[2017-06-27 06:22] LABS: CHOLESTEROL 122 mg/dl (100-200); TROPONIN-I < 0.012 ng/ml (0.00-0.12)
[2017-06-27 06:22] LABS: CHOL/HDL RATIO 5.8 RATIO; HDL CHOLESTEROL 21 mg/dl (31-75); LDL CHOLESTEROL,CALCULATED 68 mg/dl; TRIGLYCERIDES 166 mg/dl (0-149)
[2017-06-27] MEDS: INSULIN ASPART [NOVOLOG] 3 ML PEN SC ×7 (07:50→21:00)
[2017-06-27] MEDS: ASPIRIN 81 MG TAB PO (09:45)
[2017-06-27] MEDS: METOPROLOL (XL) 25 MG TAB PO (09:48)
[2017-06-27] MEDS ORDERED: SOD CHLORIDE 0.9% IV (16:30)
[2017-06-27] MEDS ORDERED: GEMCITABINE IV (16:30)
[2017-06-27] MEDS: ATORVASTATIN 10 MG TAB PO (21:01)
[2017-06-27] MEDS: INSULIN GLARGINE [LANtus] 3 ML PEN SC (21:05)
[2017-06-27] MEDS: morphine LIQ (10 MG/5 ML) CUP PO (21:20)
[2017-06-27] MEDS: NACL 0.9% IV (21:42)
[2017-06-27] MEDS: KCL 20 MEQ IV (21:42)
[2017-06-27] MEDS ORDERED: DIPHENHYDRAMINE 50 MG INJ IV (22:30)
[2017-06-27] MEDS ORDERED: HYDROCORTISONE 100 MG INJ IV (22:30)
[2017-06-28] MEDS: FUROSEMIDE 40 MG INJ IV ×2 (00:01→13:27)
[2017-06-28] MEDS: DILTIAZEM 60 MG TAB PO ×4 (00:39→18:18)
[2017-06-28] MEDS: ONDANSETRON INJ 16 MG, DEXAMETHASONE 4 MG/ML 20 MG in DEXTROSE 5% 50 ML IV (00:48)
[2017-06-28] MEDS: SOD CHLORIDE 0.9% IV ×2 (01:55→12:58)
[2017-06-28] MEDS: CISPLATIN IV (01:55)
[2017-06-28] MEDS: ACCU-CHEK XX (02:00)
[2017-06-28 05:25] LABS: ADD MAN DIFF? NO
[2017-06-28 05:30] LABS: ABNORMAL IP MESSAGE 1; BASOPHILS % 0.4 % (0.0-2.0); EOSINOPHILS # 0.1 10^3/ul (0.0-0.5); EOSINOPHILS % 0.8 % (0.0-7.0); HEMATOCRIT 27.1 % (42.0-52.0); HEMOGLOBIN 8.7 g/dl (14.0-18.0); LYMPHOCYTES # 1.1 10^3/ul (0.8-2.9); LYMPHOCYTES % 10.5 % (15.0-51.0); MEAN CORPUSCULAR HEMOGLOBIN 27.7 pg (29.0-33.0); MEAN CORPUSCULAR HGB CONC 32.1 g/dl (32.0-37.0); MEAN CORPUSCULAR VOLUME 86.3 fl (82.0-101.0); MEAN PLATELET VOLUME 9.6 fl (7.4-10.4); MONOCYTE # 0.3 10^3/ul (0.3-0.9); MONOCYTES % 2.7 % (0.0-11.0); NEUTROPHIL # 8.1 10^3/ul (1.6-7.5); NEUTROPHILS % 78.8 % (39.0-77.0); PLATELET COUNT 237 10^3/UL (140-415); POSITIVE DIFF @See below; RED BLOOD COUNT 3.14 10^6/ul (4.70-6.10); RED CELL DISTRIBUTION WIDTH 15.1 % (11.5-14.5)
[2017-06-28 05:30] LABS: WHITE BLOOD COUNT 10.2 10^3/ul (4.8-10.8)
[2017-06-28 06:00] LABS: ANION GAP 15 (8-16); BLOOD UREA NITROGEN 18 mg/dl (7-20); CARBON DIOXIDE 19 mmol/L (21-31); CHLORIDE 112 mmol/L (97-110); CREATININE 1.06 mg/dl (0.61-1.24); GLUCOSE 166 mg/dl (70-220); MAGNESIUM 2.4 mg/dl (1.7-2.5); PHOSPHORUS 1.9 mg/dl (2.5-4.9); POTASSIUM 4.9 mmol/L (3.5-5.1); SODIUM 141 mmol/L (135-144)
[2017-06-28] MEDS: PIPER-TAZO 3.375 GM IV (PMX) 100 ML IVPB ×2 (06:08→14:06)
[2017-06-28] MEDS: PANTOPRAZOLE (EC) 40 MG TAB PO (06:09)
[2017-06-28] MEDS: AMIODARONE 200 MG TAB PO (08:30)
[2017-06-28] MEDS: ASPIRIN 81 MG TAB PO (08:30)
[2017-06-28] MEDS: METOPROLOL (XL) 25 MG TAB PO (08:31)
[2017-06-28] MEDS: INSULIN ASPART [NOVOLOG] 3 ML PEN SC ×6 (09:20→17:55)
[2017-06-28] MEDS: NS + KCL 20 MEQ 1,000 ML IV (09:20)
[2017-06-28] MEDS: FUROSEMIDE 40 MG TAB PO (12:16)
[2017-06-28] MEDS: GEMCITABINE IV (12:58)
[2017-06-28] MEDS: HEPARIN (100 UNITS/ML) 5 ML SYG CATHETER (16:55)
== END 2017-06-28 18:20 | disposition home or self-care (01) | DRG 872 ==
LOC: TEL 06-23 00:22 → MS4 06-25 17:10 → MS1 06-26 20:09 → E/R 13:58 → MS1 06-23 20:20 → MS2 17:52
PROC: 0JH60WZ Insertion of Totally Implantable Vascular Access Device into Chest Subcutaneous Tissue and Fascia, Open Approach (ICD-10-PCS; principal; 2017-06-25)
PROC: 02H633Z Insertion of Infusion Device into Right Atrium, Percutaneous Approach (ICD-10-PCS; 2017-06-25)
PROC: B214YZZ Fluoroscopy of Right Heart using Other Contrast (ICD-10-PCS; 2017-06-25)
DX: A41.52 Sepsis due to Pseudomonas (principal); N39.0 Urinary tract infection, site not specified; C78.00 Secondary malignant neoplasm of unspecified lung; C78.7 Secondary malignant neoplasm of liver and intrahepatic bile duct; C79.51 Secondary malignant neoplasm of bone; N17.9 Acute kidney failure, unspecified; E87.2 Acidosis; I48.0 Paroxysmal atrial fibrillation; I25.10 Atherosclerotic heart disease of native coronary artery without angina pectoris; C67.9 Malignant neoplasm of bladder, unspecified; E11.9 Type 2 diabetes mellitus without complications; R31.9 Hematuria, unspecified; D50.0 Iron deficiency anemia secondary to blood loss (chronic); D63.8 Anemia in other chronic diseases classified elsewhere; R74.0 Nonspecific elevation of levels of transaminase and lactic acid dehydrogenase [LDH]; R65.20 Severe sepsis without septic shock; Z79.4 Long term (current) use of insulin; Z79.02 Long term (current) use of antithrombotics/antiplatelets
CPT/HCPCS: 36415; 36561; 71045; 76942; 80048; 80053; 80061; 81001; 82962; 83605; 83735; 84100; 84443; 84484; 85025; 85610; 85730; 87040; 87081; 87086; 93005; 93306; 96365; 96367; 96372; 99291-25; J9201

== ENCOUNTER 2017-06-30 18:32 | Emergency (ER) | payer SELFPAY, BC | END 2017-06-30 19:13 | disposition left against medical advice (07) | LOC: E/R 18:32 | DX: Z53.21 Procedure and treatment not carried out due to patient leaving prior to being seen by health care provider (principal) | CPT/HCPCS: 82962 ==

== ENCOUNTER 2017-07-06 16:56 | Inpatient (IN) | payer BC ==
[2017-07-06] MEDS: SODIUM CHLORIDE 0.9% 1L BAG IV* (19:23)
[2017-07-06] MEDS: SOD CHLORIDE 0.9% 1,000 ML IV (19:30)
[2017-07-06 20:09] LABS: ABNORMAL IP MESSAGE 1; MEAN CORPUSCULAR HEMOGLOBIN 27.2 pg (29.0-33.0); MEAN CORPUSCULAR HGB CONC 32.1 g/dl (32.0-37.0); MEAN CORPUSCULAR VOLUME 84.6 fl (82.0-101.0); MEAN PLATELET VOLUME 10.6 fl (7.4-10.4); NUCLEATED RED BLOOD CELLS% 1.1 /100WBC (0.0-0.0); PLATELET COUNT 94 10^3/UL (140-415); POSITIVE DIFF @See below; RED BLOOD COUNT 3.31 10^6/ul (4.70-6.10); RED CELL DISTRIBUTION WIDTH 15.1 % (11.5-14.5)
[2017-07-06 20:09] LABS: WHITE BLOOD COUNT 9.7 10^3/ul (4.8-10.8)
[2017-07-06 20:16] LABS: ADD UMIC YES; UR ASCORBIC ACID NEGATIVE (NEGATIVE); UR BACTERIA FEW /HPF (NONE SEEN); UR BILIRUBIN (Dip) NEGATIVE (NEGATIVE); UR BLOOD (Dip) 2+ mg/dL (NEGATIVE); UR CLARITY CLOUDY (CLEAR); UR COLOR YELLOW (YELLOW); UR GLUCOSE (Dip) 2+ mg/dL (NEGATIVE); UR HYALINE CAST FEW /HPF (NONE SEEN); UR KETONES (Dip) NEGATIVE (NEGATIVE); UR LEUKOCYTE ESTERASE (Dip) 3+ Leu/ul (NEGATIVE); UR MUCUS FEW /HPF (NONE SEEN); UR NITRITE (Dip) NEGATIVE (NEGATIVE); UR RBC 43 /HPF (0-5); UR SPECIFIC GRAVITY (Dip) 1.019 (1.003-1.030); UR TOTAL PROTEIN (Dip) 1+ mg/dl (NEGATIVE); UR UROBILINOGEN (Dip) NEGATIVE (NEGATIVE); UR WBC > 182 /HPF (0-5)
[2017-07-06 20:24] LABS: PARTIAL THROMBOPLASTIN TIME 29.8 Sec (25.0-35.0); PROTIME 13.3 Sec (11.9-14.9)
[2017-07-06 20:30] LABS: ADD MAN DIFF? YES
[2017-07-06 20:33] LABS: ALANINE AMINOTRANSFERASE 62 IU/L (13-69); ALBUMIN 3.2 g/dl (3.3-4.9); ALBUMIN/GLOBULIN RATIO 0.94; ALKALINE PHOSPHATASE 204 IU/L (42-121); ANION GAP 15 (8-16); ASPARTATE AMINO TRANSFERASE 75 IU/L (15-46); BILIRUBIN,INDIRECT 0.1 mg/dl (0-1.1); BILIRUBIN,TOTAL 0.1 mg/dl (0.2-1.3); BLOOD UREA NITROGEN 27 mg/dl (7-20); CARBON DIOXIDE 19 mmol/L (21-31); CHLORIDE 100 mmol/L (97-110); CREATININE 1.02 mg/dl (0.61-1.24); GLUCOSE 195 mg/dl (70-220); LIPASE 177 U/L (23-300); POTASSIUM 4.1 mmol/L (3.5-5.1); SODIUM 130 mmol/L (135-144); TOTAL PROTEIN 6.6 g/dl (6.1-8.1)
[2017-07-06 20:38] LABS: LACTIC ACID 2.9 mmol/L (0.5-2.0)
[2017-07-06 20:53] LABS: TROPONIN-I < 0.012 ng/ml (0.00-0.12)
[2017-07-06 21:26] LABS: BAND NEUTROPHILS % (M) 1 % (0-4); BASOPHILS % (M) 1 % (0-2); ERYTHROBLAST% (NRBC) (M) 3 % (0-0); LYMPHOCYTES #M 1.6 10^3/ul (0.8-2.9); LYMPHOCYTES % (M) 17 % (15-51); MONOCYTES % (M) 1 % (0-11); PLATELET ESTIMATE DECREASED; SEG NEUT #M 7.8 10^3/ul (1.6-7.5); SEGMENTED NEUTROPHILS (M) % 80 % (39-77); SMUDGE%M 4 % (0-0)
[2017-07-06] MEDS: LEVOFLOXACIN 750MG/D5W (PMX) 150 ML IVPB (21:35)
[2017-07-06] MEDS: ACETAMINOPHEN 325 MG TAB PO (21:36)
[2017-07-06] MEDS: CALCIUM GLUCONATE 10% 1 GM in DEXTROSE 5% 100 ML IVPB (22:35)
[2017-07-07 00:10] LABS: LACTIC ACID 1.5 mmol/L (0.5-2.0)
[2017-07-07 02:50] LABS: LACTIC ACID 1.1 mmol/L (0.5-2.0)
[2017-07-07] MEDS ORDERED: ALBUTEROL/IPRATROPIUM (NEB) 3 ML AMP HHN (04:30)
[2017-07-07] MEDS ORDERED: ACETAMINOPHEN 325 MG TAB PO (04:30)
[2017-07-07] MEDS ORDERED: ONDANSETRON 4 MG INJ IV (04:30)
[2017-07-07] MEDS: SOD CHLORIDE 0.9% 1,000 ML IV (04:30)
[2017-07-07] MEDS ORDERED: morphine 2 MG INJ IV (04:30)
[2017-07-07] MEDS ORDERED: NACL 0.9% 3 ML SYG IV (04:30)
[2017-07-07] MEDS ORDERED: GLUCAGON 1 MG INJ IM (05:00)
[2017-07-07] MEDS ORDERED: DEXTROSE 50% 50 ML SYRINGE IV ×2 (05:00)
[2017-07-07] MEDS ORDERED: GLUCOSE GEL 15 GRAM TUBE BUCCAL (05:00)
[2017-07-07] MEDS ORDERED: GLUCOSE GEL 15 GRAM TUBE PO ×2 (05:00)
[2017-07-07 05:47] LABS: ABNORMAL IP MESSAGE 1; HEMATOCRIT 21.5 % (42.0-52.0); MEAN CORPUSCULAR HEMOGLOBIN 27.6 pg (29.0-33.0); MEAN CORPUSCULAR HGB CONC 32.6 g/dl (32.0-37.0); MEAN CORPUSCULAR VOLUME 84.6 fl (82.0-101.0); MEAN PLATELET VOLUME 10.3 fl (7.4-10.4); PLATELET COUNT 79 10^3/UL (140-415); POSITIVE DIFF @See below; RED BLOOD COUNT 2.54 10^6/ul (4.70-6.10); RED CELL DISTRIBUTION WIDTH 15.1 % (11.5-14.5)
[2017-07-07 06:17] LABS: ADD MAN DIFF? YES
[2017-07-07 06:22] LABS: ALANINE AMINOTRANSFERASE 51 IU/L (13-69); ALBUMIN 2.5 g/dl (3.3-4.9); ALBUMIN/GLOBULIN RATIO 0.92; ALKALINE PHOSPHATASE 162 IU/L (42-121); ANION GAP 12 (8-16); ASPARTATE AMINO TRANSFERASE 45 IU/L (15-46); BILIRUBIN,INDIRECT 0.1 mg/dl (0-1.1); BILIRUBIN,TOTAL 0.1 mg/dl (0.2-1.3); BLOOD UREA NITROGEN 18 mg/dl (7-20); CALCIUM 6.1 mg/dl (8.4-10.2); CARBON DIOXIDE 19 mmol/L (21-31); CHLORIDE 107 mmol/L (97-110); CREATININE 0.72 mg/dl (0.61-1.24); GLUCOSE 119 mg/dl (70-220); POTASSIUM 3.1 mmol/L (3.5-5.1); SODIUM 135 mmol/L (135-144); TOTAL PROTEIN 5.2 g/dl (6.1-8.1)
[2017-07-07] MEDS: PANTOPRAZOLE (EC) 40 MG TAB PO (06:28)
[2017-07-07] MEDS: ASPIRIN 81 MG TAB PO (08:34)
[2017-07-07] MEDS: CEFTRIAXONE 1 GM/50 ML (PMX) 50 ML IVPB ×2 (08:35→22:09)
[2017-07-07 09:16] LABS: ANISOCYTOSIS 1+ (0-0); BAND NEUTROPHILS #M 0.3 10^3/ul (0.0-0.6); BAND NEUTROPHILS % (M) 6 % (0-4); ERYTHROBLAST% (NRBC) (M) 2 % (0-0); LYMPHOCYTES #M 1.2 10^3/ul (0.8-2.9); LYMPHOCYTES % (M) 20 % (15-51); MICROCYTOSIS 1+ (0-0); MONOCYTE #M 0.1 10^3/ul (0.3-0.9); MONOCYTES % (M) 3 % (0-11); PLATELET ESTIMATE DECREASED; SEG NEUT #M 4.3 10^3/ul (1.6-7.5); SEGMENTED NEUTROPHILS (M) % 71 % (39-77); SMUDGE%M 24 % (0-0)
[2017-07-07] MEDS: METOPROLOL (XL) 50 MG TAB PO (10:42)
[2017-07-07] MEDS: AMIODARONE 200 MG TAB PO ×2 (12:42→20:48)
[2017-07-07] MEDS: PIOGLITAZONE 15 MG TAB PO (12:43)
[2017-07-07] MEDS: metFORMIN 500 MG TAB PO ×2 (12:43→17:04)
[2017-07-07 13:51] LABS: IMMEDIATE SPIN CROSSMATCH 1 2
[2017-07-07] MEDS: POTASSIUM CHLORIDE (SR) 20 MEQ TAB PO ×2 (14:20→17:04)
[2017-07-07] MEDS: INSULIN ASPART [NOVOLOG] 3 ML PEN SC ×2 (17:08→20:51)
[2017-07-07] MEDS: POTASSIUM CHLORIDE 30 MEQ in DEXTROSE 5%-0.9% NACL 1,000 ML IV (17:33)
[2017-07-07] MEDS: ATORVASTATIN 10 MG TAB PO (20:41)
[2017-07-08] MEDS: ACCU-CHEK XX (02:00)
[2017-07-08] MEDS: POTASSIUM CHLORIDE 30 MEQ in DEXTROSE 5%-0.9% NACL 1,000 ML IV ×3 (03:09→20:42)
[2017-07-08] MEDS: PANTOPRAZOLE (EC) 40 MG TAB PO (05:08)
[2017-07-08 05:12] LABS: ABNORMAL IP MESSAGE 1; HEMATOCRIT 28.8 % (42.0-52.0); HEMOGLOBIN 9.7 g/dl (14.0-18.0); MEAN CORPUSCULAR HEMOGLOBIN 28.1 pg (29.0-33.0); MEAN CORPUSCULAR HGB CONC 33.7 g/dl (32.0-37.0); MEAN CORPUSCULAR VOLUME 83.5 fl (82.0-101.0); MEAN PLATELET VOLUME 10.1 fl (7.4-10.4); NUCLEATED RED BLOOD CELLS% 1.5 /100WBC (0.0-0.0); PLATELET COUNT 107 10^3/UL (140-415); POSITIVE DIFF @See below; RED BLOOD COUNT 3.45 10^6/ul (4.70-6.10); RED CELL DISTRIBUTION WIDTH 14.7 % (11.5-14.5)
[2017-07-08 05:12] LABS: WHITE BLOOD COUNT 5.5 10^3/ul (4.8-10.8)
[2017-07-08 05:37] LABS: ADD MAN DIFF? YES
[2017-07-08 05:43] LABS: ANION GAP 11 (8-16); BLOOD UREA NITROGEN 13 mg/dl (7-20); CALCIUM 6.9 mg/dl (8.4-10.2); CARBON DIOXIDE 22 mmol/L (21-31); CHLORIDE 110 mmol/L (97-110); CREATININE 0.87 mg/dl (0.61-1.24); GLUCOSE 147 mg/dl (70-220); MAGNESIUM 1.9 mg/dl (1.7-2.5); PHOSPHORUS 1.3 mg/dl (2.5-4.9); POTASSIUM 4.7 mmol/L (3.5-5.1); SODIUM 138 mmol/L (135-144)
[2017-07-08 07:08] LABS: ACANTHOCYTES 1+ (0-0); ANISOCYTOSIS 1+ (0-0); BAND NEUTROPHILS #M 0.1 10^3/ul (0.0-0.6); BAND NEUTROPHILS % (M) 2 % (0-4); ERYTHROBLAST% (NRBC) (M) 2 % (0-0); GIANT THROMBO% (M) 1 % (0-0); LYMPHOCYTES #M 1.3 10^3/ul (0.8-2.9); LYMPHOCYTES % (M) 24 % (15-51); MICROCYTOSIS 1+ (0-0); MONOCYTE #M 0.2 10^3/ul (0.3-0.9); MONOCYTES % (M) 5 % (0-11); PLATELET ESTIMATE DECREASED; POIKILOCYTOSIS 1+ (0-0); POLYCHROMASIA 1+ (0-0); SEG NEUT #M 3.8 10^3/ul (1.6-7.5); SEGMENTED NEUTROPHILS (M) % 69 % (39-77); SMUDGE%M 16 % (0-0)
[2017-07-08] MEDS: metFORMIN 500 MG TAB PO (07:25)
[2017-07-08] MEDS: INSULIN ASPART [NOVOLOG] 3 ML PEN SC ×4 (07:30→20:49)
[2017-07-08] MEDS: CEFTRIAXONE 1 GM/50 ML (PMX) 50 ML IVPB ×2 (08:11→20:42)
[2017-07-08] MEDS: ASPIRIN 81 MG TAB PO (08:11)
[2017-07-08] MEDS: PIOGLITAZONE 15 MG TAB PO (08:11)
[2017-07-08] MEDS: AMIODARONE 200 MG TAB PO ×2 (08:12→20:43)
[2017-07-08] MEDS: METOPROLOL (XL) 50 MG TAB PO (08:13)
[2017-07-08] MEDS: NEUTRA-PHOS 250 MG PACKET PO ×2 (13:20→20:43)
[2017-07-08] MEDS: ATORVASTATIN 10 MG TAB PO (20:42)
[2017-07-09] MEDS: ACCU-CHEK XX (02:00)
[2017-07-09 05:14] LABS: ABNORMAL IP MESSAGE 1; HEMATOCRIT 30.6 % (42.0-52.0); MEAN CORPUSCULAR HGB CONC 32.7 g/dl (32.0-37.0); MEAN CORPUSCULAR VOLUME 85.7 fl (82.0-101.0); MEAN PLATELET VOLUME 9.8 fl (7.4-10.4); NUCLEATED RED BLOOD CELLS% 0.6 /100WBC (0.0-0.0); PLATELET COUNT 132 10^3/UL (140-415); POSITIVE DIFF @See below; RED BLOOD COUNT 3.57 10^6/ul (4.70-6.10); RED CELL DISTRIBUTION WIDTH 15.5 % (11.5-14.5)
[2017-07-09 05:14] LABS: WHITE BLOOD COUNT 4.9 10^3/ul (4.8-10.8)
[2017-07-09 05:18] LABS: ADD MAN DIFF? YES
[2017-07-09] MEDS: PANTOPRAZOLE (EC) 40 MG TAB PO (05:32)
[2017-07-09 05:48] LABS: ANION GAP 13 (8-16); BLOOD UREA NITROGEN 10 mg/dl (7-20); CALCIUM 7.1 mg/dl (8.4-10.2); CARBON DIOXIDE 20 mmol/L (21-31); CHLORIDE 109 mmol/L (97-110); CREATININE 0.85 mg/dl (0.61-1.24); GLUCOSE 111 mg/dl (70-220); MAGNESIUM 1.8 mg/dl (1.7-2.5); PHOSPHORUS 1.7 mg/dl (2.5-4.9); POTASSIUM 4.9 mmol/L (3.5-5.1); SODIUM 137 mmol/L (135-144)
[2017-07-09 06:45] LABS: ANISOCYTOSIS 1+ (0-0); BAND NEUTROPHILS #M 0.2 10^3/ul (0.0-0.6); BAND NEUTROPHILS % (M) 6 % (0-4); BASOPHILS % (M) 1 % (0-2); EOSINOPHILS % (M) 1 % (0-7); ERYTHROBLAST% (NRBC) (M) 2 % (0-0); GIANT THROMBO% (M) 1 % (0-0); LYMPHOCYTES #M 1.2 10^3/ul (0.8-2.9); LYMPHOCYTES % (M) 25 % (15-51); MICROCYTOSIS 1+ (0-0); MONOCYTE #M 0.2 10^3/ul (0.3-0.9); MONOCYTES % (M) 6 % (0-11); MYELOCYTES #M 0.1 10^3/ul (0.0-0.0); MYELOCYTES % (M) 4 % (0-0); PLATELET ESTIMATE NORMAL; POLYCHROMASIA 3+ (0-0); REACTIVE LYMPHOCYTES% (M) 2 % (0-0); SEG NEUT #M 2.7 10^3/ul (1.6-7.5); SEGMENTED NEUTROPHILS (M) % 55 % (39-77); SMUDGE%M 8 % (0-0)
[2017-07-09] MEDS: CEFTRIAXONE 1 GM/50 ML (PMX) 50 ML IVPB (08:51)
[2017-07-09] MEDS: PIOGLITAZONE 15 MG TAB PO (08:54)
[2017-07-09] MEDS: ASPIRIN 81 MG TAB PO (08:55)
[2017-07-09] MEDS: METOPROLOL (XL) 50 MG TAB PO (08:55)
[2017-07-09] MEDS: NEUTRA-PHOS 250 MG PACKET PO ×3 (08:55→21:19)
[2017-07-09] MEDS: POTASSIUM CHLORIDE 30 MEQ in DEXTROSE 5%-0.9% NACL 1,000 ML IV ×2 (08:58→22:43)
[2017-07-09] MEDS: AMIODARONE 200 MG TAB PO ×2 (08:58→21:19)
[2017-07-09] MEDS: INSULIN ASPART [NOVOLOG] 3 ML PEN SC ×4 (09:07→21:36)
[2017-07-09] MEDS: ATORVASTATIN 10 MG TAB PO (21:19)
[2017-07-09] MEDS: CIPROFLOXACIN 400 MG in D5W 200 ML IVPB (21:22)
[2017-07-10] MEDS: ACCU-CHEK XX (02:30)
[2017-07-10] MEDS: POTASSIUM CHLORIDE 30 MEQ in DEXTROSE 5%-0.9% NACL 1,000 ML IV ×2 (05:53→13:56)
[2017-07-10] MEDS: PANTOPRAZOLE (EC) 40 MG TAB PO (06:27)
[2017-07-10 06:31] LABS: ANION GAP 14 (8-16); BLOOD UREA NITROGEN 12 mg/dl (7-20); CARBON DIOXIDE 18 mmol/L (21-31); CHLORIDE 112 mmol/L (97-110); CREATININE 0.82 mg/dl (0.61-1.24); GLUCOSE 137 mg/dl (70-220); MAGNESIUM 1.8 mg/dl (1.7-2.5); PHOSPHORUS 2.4 mg/dl (2.5-4.9); SODIUM 139 mmol/L (135-144)
[2017-07-10 06:34] LABS: POTASSIUM 5.2 mmol/L (3.5-5.1)
[2017-07-10] MEDS: INSULIN ASPART [NOVOLOG] 3 ML PEN SC ×4 (08:49→21:07)
[2017-07-10] MEDS: PIOGLITAZONE 15 MG TAB PO (08:49)
[2017-07-10] MEDS: AMIODARONE 200 MG TAB PO ×2 (08:49→21:28)
[2017-07-10] MEDS: ASPIRIN 81 MG TAB PO (08:50)
[2017-07-10] MEDS: METOPROLOL (XL) 50 MG TAB PO (08:50)
[2017-07-10] MEDS: NEUTRA-PHOS 250 MG PACKET PO ×3 (08:50→21:28)
[2017-07-10] MEDS: CIPROFLOXACIN 400 MG in D5W 200 ML IVPB ×2 (09:47→21:27)
[2017-07-10] MEDS: ONDANSETRON INJ 16 MG, DEXAMETHASONE 4 MG/ML 20 MG in DEXTROSE 5% 50 ML IV (16:26)
[2017-07-10] MEDS: GEMCITABINE IV (16:55)
[2017-07-10] MEDS: SOD CHLORIDE 0.9% IV (16:55)
[2017-07-10] MEDS: ATORVASTATIN 10 MG TAB PO (21:28)
[2017-07-11] MEDS: ACCU-CHEK XX (02:00)
[2017-07-11 05:53] LABS: WHITE BLOOD COUNT 4.3 10^3/ul (4.8-10.8)
[2017-07-11 05:53] LABS: ABNORMAL IP MESSAGE 1; HEMATOCRIT 32.3 % (42.0-52.0); HEMOGLOBIN 10.4 g/dl (14.0-18.0); MEAN CORPUSCULAR HEMOGLOBIN 28.1 pg (29.0-33.0); MEAN CORPUSCULAR HGB CONC 32.2 g/dl (32.0-37.0); MEAN CORPUSCULAR VOLUME 87.3 fl (82.0-101.0); PLATELET COUNT 220 10^3/UL (140-415); POSITIVE DIFF @See below; RED CELL DISTRIBUTION WIDTH 16.6 % (11.5-14.5)
[2017-07-11] MEDS: PANTOPRAZOLE (EC) 40 MG TAB PO (06:05)
[2017-07-11 06:19] LABS: ANION GAP 17 (8-16); BLOOD UREA NITROGEN 15 mg/dl (7-20); CALCIUM 7.7 mg/dl (8.4-10.2); CARBON DIOXIDE 20 mmol/L (21-31); CHLORIDE 108 mmol/L (97-110); CREATININE 0.82 mg/dl (0.61-1.24); GLUCOSE 227 mg/dl (70-220); MAGNESIUM 1.8 mg/dl (1.7-2.5); PHOSPHORUS 3.9 mg/dl (2.5-4.9); POTASSIUM 5.1 mmol/L (3.5-5.1); SODIUM 140 mmol/L (135-144)
[2017-07-11 06:32] LABS: ADD MAN DIFF? YES
[2017-07-11 07:55] LABS: ANISOCYTOSIS 1+ (0-0); BAND NEUTROPHILS #M 0.5 10^3/ul (0.0-0.6); BAND NEUTROPHILS % (M) 13 % (0-4); GIANT THROMBO% (M) 1 % (0-0); LYMPHOCYTES #M 0.5 10^3/ul (0.8-2.9); LYMPHOCYTES % (M) 12 % (15-51); MICROCYTOSIS 1+ (0-0); MONOCYTE #M 0.2 10^3/ul (0.3-0.9); MONOCYTES % (M) 5 % (0-11); PLATELET ESTIMATE NORMAL; POIKILOCYTOSIS 1+ (0-0); POLYCHROMASIA 1+ (0-0); PROMYELOCYTES % (M) 1 % (0-0); REACTIVE LYMPHOCYTES% (M) 1 % (0-0); SEG NEUT #M 2.9 10^3/ul (1.6-7.5); SEGMENTED NEUTROPHILS (M) % 68 % (39-77)
[2017-07-11] MEDS: INSULIN ASPART [NOVOLOG] 3 ML PEN SC ×2 (09:00→12:58)
[2017-07-11] MEDS: METOPROLOL (XL) 50 MG TAB PO (09:03)
[2017-07-11] MEDS: PIOGLITAZONE 15 MG TAB PO (09:05)
[2017-07-11] MEDS: ASPIRIN 81 MG TAB PO (09:05)
[2017-07-11] MEDS: NEUTRA-PHOS 250 MG PACKET PO ×2 (09:06→13:10)
[2017-07-11] MEDS: AMIODARONE 200 MG TAB PO (09:34)
[2017-07-11] MEDS: CIPROFLOXACIN 400 MG in D5W 200 ML IVPB (09:35)
[2017-07-11] MEDS: HEPARIN (100 UNITS/ML) 5 ML SYG CATHETER (16:43)
== END 2017-07-11 16:50 | disposition home or self-care (01) | DRG 687 ==
LOC: MS3 22:08 → MS1 07-08 16:49 → E/R 16:56
PROVIDERS: Internal Medicine
PROC: 30233N1 Transfusion of Nonautologous Red Blood Cells into Peripheral Vein, Percutaneous Approach (ICD-10-PCS; 2017-07-07)
PROC: 3E03305 Introduction of Other Antineoplastic into Peripheral Vein, Percutaneous Approach (ICD-10-PCS; principal; 2017-07-10)
DX: C67.9 Malignant neoplasm of bladder, unspecified (principal); N39.0 Urinary tract infection, site not specified; C79.51 Secondary malignant neoplasm of bone; C78.7 Secondary malignant neoplasm of liver and intrahepatic bile duct; R33.8 Other retention of urine; B96.5 Pseudomonas (aeruginosa) (mallei) (pseudomallei) as the cause of diseases classified elsewhere; R31.9 Hematuria, unspecified; E87.6 Hypokalemia; I48.0 Paroxysmal atrial fibrillation; I10 Essential (primary) hypertension; E11.9 Type 2 diabetes mellitus without complications; I25.10 Atherosclerotic heart disease of native coronary artery without angina pectoris; E83.51 Hypocalcemia; E86.0 Dehydration; D69.6 Thrombocytopenia, unspecified; D63.8 Anemia in other chronic diseases classified elsewhere; N31.9 Neuromuscular dysfunction of bladder, unspecified; Z79.84 Long term (current) use of oral hypoglycemic drugs; Z79.82 Long term (current) use of aspirin
CPT/HCPCS: 36415; 36430; 71045; 74176; 80048; 80053; 81001; 82962; 83605; 83690; 83735; 84100; 84484; 85025; 85610; 85730; 86850; 86900; 86901; 86920; 87040; 87086; 93005; 96365; 96375; 99291-25; J9201